=== PATIENT | female | born 1985 | race African-American/Black ===

== ENCOUNTER → 2016-12-29 | Outpatient (CLI) | payer OTHER ==
[~2016-12-29] MED LIST: BUTO1CRE PV; IBUP-232 PO; MACR100C2 PO; OXYC1TAB63 PO; PREN1CAP20 PO; PREN1CAP33 PO; SENN1TAB2 PO
== END ==
LOC: HPND 14:04
PROVIDERS: ATTEND Obstetrics & Gynecology
DX: O09.32 Supervision of pregnancy with insufficient antenatal care, second trimester (principal); O99.842 Bariatric surgery status complicating pregnancy, second trimester; Z68.34 Body mass index [BMI] 34.0-34.9, adult
CPT/HCPCS: 76811

== ENCOUNTER → 2017-01-27 | Outpatient (CLI) | payer OTHER ==
[~2017-01-27] MED LIST changes: +FLUC150T PO
== END ==
LOC: HPND 10:47
PROVIDERS: ATTEND Obstetrics & Gynecology
DX: O99.843 Bariatric surgery status complicating pregnancy, third trimester (principal); Z3A.28 28 weeks gestation of pregnancy
CPT/HCPCS: 76816

== ENCOUNTER 2017-03-31 05:17 | Inpatient (IN) | payer OTHER ==
[~2017-03-31] VITALS: Ht 170.2 cm; Wt 105.2 kg
[2017-03-31] VITALS (32 sets, daily range): BP systolic 104–147; BP diastolic 54–112; PULSE 57–82; RESP 17–20; TEMP 97.5–98.3; O2SAT 94–100
[~2017-03-31 05:17] MED LIST changes: -BUTO1CRE PV; -FLUC150T PO; -IBUP-232 PO; -OXYC1TAB63 PO; -PREN1CAP20 PO; -SENN1TAB2 PO
[2017-03-31] MEDS ORDERED: ONDANSETRON HCL 4 MG/2 ML VIAL IV PRN (06:15)
[2017-03-31] MEDS ORDERED: NS 500 ML BOLUS IV PRN (06:15)
[2017-03-31] MEDS ORDERED: CITRIC ACID-SODIUM CITRATE LIQ 30 ML UDC PO SCH (06:15)
[2017-03-31] MEDS ORDERED: OXYTOCIN 30 UNITS 500ML PREMIX IV ONE (06:15)
[2017-03-31] MEDS ORDERED: MINERAL OIL 10 ML VIAL TOPICAL PRN (06:15)
[2017-03-31] MEDS ORDERED: LIDOCAINE HCL 1% 50 ML VIAL INFIL PRN (06:15)
[2017-03-31] MEDS ORDERED: LACTATED RINGER'S 1000 ML BOLUS IV PRN (06:15)
[2017-03-31] MEDS ORDERED: NS 1000 ML IV PRN (06:15)
[2017-03-31] MEDS ORDERED: LIDOCAINE HCL 1% 50 ML VIAL I-DERMAL PRN (06:15)
[2017-03-31 06:31] LABS: BLOOD, URINE NEG (NEG); COMMENT (UR) CULT NOT INDICATED; CULTURE IF INDICATED CULT NOT INDICATED; GLUCOSE,URINE NEG (NEG); KETONE, URINE NEG (NEG); MUCUS URINE FEW /lpf (OCC); NITRITE,URINE NEG (NEG); PH, URINE 5.5 (5.0-8.5); SQUAMOUS EPITHELIAL CELL URINE <1 /hpf (0-5); URINE COLOR YELLOW (YELLW/STRAW)
[2017-03-31 06:55] LABS: AUTOMATED NEUTROPHIL # 5.4 TH/MM3 (1.8-7.7); BASOPHIL % 0.4 % (0.0-2.0); EOSINOPHIL % 0.5 % (0.0-4.0); HEMATOCRIT 35.8 % (35.0-46.0); HEMO FLAGS DIFF FINAL; LYMPHOCYTE # 3.2 TH/MM3 (1.0-4.8); MEAN CELL VOLUME 90.5 FL (80.0-100.0); MEAN CORPUSCULAR HEMOGLOBIN 30.8 PG (27.0-34.0); MEAN CORPUSCULAR HGB CONC 34.1 % (32.0-36.0); MONO % 6.9 % (0.0-8.0); NEUT % 58.2 % (16.0-70.0); PLATELET COUNT 207 TH/MM3 (150-450); RED BLOOD COUNT 3.95 MIL/MM3 (4.00-5.30); RED CELL DISTRIBUTION WIDTH 13.1 % (11.6-17.2); WHITE BLOOD COUNT 9.3 TH/MM3 (4.0-11.0)
[2017-03-31] MEDS: LACTATED RINGER'S 1000 ML IV SCH (08:29)
--- NOTE | 2017-03-31 09:06 | PD ---
HPI Chief Complaint water broke Date Seen: March 31, 2017 Time Seen: 09:02 (Carmelo Topete MD R1) Travel History International Travel<30 Days: No Contact w/Intl Traveler<30Days: No (Carmelo Topete MD R1) History of Present Illness HPI 31 y/o G1 at 37/5 weeks presents for gush of fluids. Pt states that she had a gush of fluids around 3 am this morning, then proceeded to come to ED. Clear fluid. Denies any vaginal bleeding. Endorses movement. Feeling contractions now every 10 minutes or so. Otherwise, denies any other complaints. No chest pain, SOB, leg pain. No headache, changes in vision, edema. Pt does have history of infections this and has been taking Macrobid. Otherwise, no complications this . Follows with care for women. Para: 0 : 1 (Carmelo Topete MD R1) History Past Medical History Medical History: Denies Significant Hx (Carmelo Topete MD R1) Obstetric History Obstetric History (Carmelo Topete MD R1) Past Surgical History Narrative Surgical Gastric bypass in 2016 (Carmelo Topete MD R1) Family History Family History: Negative (Carmelo Topete MD) Social History Alcohol Use: No Tobacco Use: No Substance Abuse: No (Carmelo Topete MD R1) Allergies-Medications (Allergen,Severity, Reaction): Coded Allergies: No Known Allergies (Unverified , 03/31/17) Home Meds Active Scripts Nitrofurantoin Monohydrate Macrocrystals (Macrobid)100 Mg [id number] Mg PO HS #30 CAP Ref 4 Prov:Nat Parsons 02/17/17 Vit W/ Fe Polysacch C (Vitafol Fe+ 90-1-200 & 50 mg)1 Cap Cap1 Tab PO DAILY #30 BOTTLE Ref 11 Prov:Nat Parsons 12/29/16 Review of Systems General / Constitutional: No: Fever, Chills Eyes: No: Blurred Vision, Visual changes HENT: No: Headaches, Vertigo Cardiovascular: No: Irregular Rhythm, Chest Pain or Discomfort, Palpitations Respiratory: No: Cough, Short of Breath Gastrointestinal: No: Nausea, Vomiting, Diarrhea, Abdominal Pain Genitourinary: No: Urgency, Frequency, Dysuria, Pelvic Pain, Discharge, Vaginal Bleeding Musculoskeletal: No: Limited ROM, Weakness Skin: No Rash, No Itching Neurologic: No: Weakness, Dizziness Psychiatric: No: Anxiety, Depression Endocrine: No: Heat Intolerance (Carmelo Topete MD R1) Physical Exam Vital Signs Date Time Temp Pulse Resp B/P Pulse Ox O2 Delivery O2 Flow Rate FiO2 03/31/17 08:15 18 03/31/17 07:05 98.0 18 03/31/17 07:05 58 123/78 03/31/17 06:48 18 03/31/17 06:30 18 Narrative GENERAL: Well-nourished, well-developed patient. SKIN: Warm and dry. HEAD: Normocephalic and atraumatic. EYES: No scleral icterus. No injection or drainage. ENT: No nasal drainage noted. Mucous membranes pink. Airway patent. NECK: Supple, trachea midline. No JVD. CARDIOVASCULAR: Regular rate and rhythm without murmurs, gallops, or rubs. RESPIRATORY: Breath sounds equal bilaterally. No accessory muscle use. ABDOMEN/GI: Abdomen soft, non-tender, bowel sounds present, no rebound, no guarding Gravid to 37 weeks size GENITOURINARY: External Genitalia: intact and normal in appearance Cervix: [-] Dilatation: [-] Effacement: [-] Station: [-] Presentation: vertex Membranes: ruptured Uterine Contractions: q10 minutes FHT's: Category: 1 Baseline: 130 Reactive: yes Variability: moderate Decels: none EXTREMITIES: No cyanosis or edema. BACK: Nontender without obvious deformity. No CVA tenderness. NEUROLOGICAL: Awake and alert. Motor and sensory grossly within normal limits. Five out of 5 muscle strength in all muscle groups. Normal speech. (Carmelo Topete MD R1) Data Data Orders Ob (2e) Additional Admit Info (03/31/17 05:49) Admit To Inpatient (03/31/17 ) Vital Signs (Adult) .Per protocol (03/31/17 06:03) Activity Oob Ad Ondina (03/31/17 06:03) Heart (03/31/17 06:03) Amnioinfusion (03/31/17 06:03) Urinary Catheter Management .ONCE (03/31/17 06:03) Diet Liquid (03/31/17 Breakfast) Complete Blood Count With Diff (03/31/17 06:03) Hold Clot (03/31/17 06:03) Abo/Rh Blood Type (03/31/17 06:03) Urinalysis - C+S If Indicated (03/31/17 06:03) Resp Oxygen Non Rebreathe Mask (03/31/17 ) ^ Epidural / Intrathecal Infus (03/31/17 06:03) Lactated Ringer's 1000 Ml Inj (Lr 1000 M (03/31/17 06:15) Sodium Chlorid 0.9% 500 Ml Inj (Ns 500 M (03/31/17 06:15) Sodium Chlor 0.9% 1000 Ml Inj (Ns 1000 M (03/31/17 06:15) Lidocaine 1% Inj (50 Ml) (Xylocaine 1% I (03/31/17 06:15) Citric Acid-Sodium Citrate Liq (Bicitra (03/31/17 06:15) Ondansetron Inj (Zofran Inj) (03/31/17 06:15) Fentanyl Inj (Fentanyl Inj) (03/31/17 06:15) Fentanyl Inj (Fentanyl Inj) (03/31/17 06:15) Oxytocin 30 Units-500ml Premix (Pitocin (03/31/17 06:15) Lidocaine 1% Inj (50 Ml) (Xylocaine 1% I (03/31/17 06:15) Light Mineral Oil (Muri-Lube Oil) (03/31/17 06:15) Lactated Ringer's 1000 Ml Inj (Lr 1000 M (03/31/17 06:15) Labs Laboratory Tests Test 03/31/17 03/31/17 05:46 06:21 Urine Color YELLOW Urine Turbidity CLEAR Urine pH 5.5 Urine Specific [place] 1.012 Urine Protein NEG Urine Glucose (UA) NEG Urine Ketones NEG Urine Occult Blood NEG Urine Nitrite NEG Urine Bilirubin NEG Urine Urobilinogen LESS THAN 2.0 Urine Leukocyte Esterase NEG Urine WBC LESS THAN 1 Urine Squamous Epithelial <1 Cells Urine Mucus FEW Microscopic Urinalysis Comment CULT NOT INDICATED White Blood Count 9.3 Red Blood Count 3.95 Hemoglobin 12.2 Hematocrit 35.8 Mean Corpuscular Volume 90.5 Mean Corpuscular Hemoglobin 30.8 Mean Corpuscular Hemoglobin 34.1 Concent Red Cell Distribution Width 13.1 Platelet Count 207 Mean Platelet Volume 9.9 Neutrophils (%) (Auto) 58.2 Lymphocytes (%) (Auto) 34.0 Monocytes (%) (Auto) 6.9 Eosinophils (%) (Auto) 0.5 Basophils (%) (Auto) 0.4 Neutrophils # (Auto) 5.4 Lymphocytes # (Auto) 3.2 Monocytes # (Auto) 0.6 Eosinophils # (Auto) 0.0 Basophils # (Auto) 0.0 CBC Comment DIFF FINAL Differential Comment Blood Type A POSITIVE Blood Bank Comment Band and Hold (Carmelo Topete MD R1) [facility] Medical Record Reviewed: Yes Interpretation(s) 31 y/o at 37/5 weeks presents for SROM. Clear fluid, rupture around 0300 this morning Category 1 FHT Cervical exam: 0/-2 - Admit for labor & delivery - GBS status pending, collected at last clinic visit, awaiting results - Continuous FHT - Expectant management - Plan for vaginal delivery (Carmelo Topete MD R1) Attending Attestation The exam, history, and the medical decision-making described in the above note were completed with the assistance of the resident provider. I reviewed and agree with the findings presented. I attest that I had a [id number] encounter with the patient on the same day, and personally performed and documented my assessment and findings in the medical record. (Lenka Enriquez MD) Carmelo Topete MD R1 March 31, 2017 09:06 Lenka Enriquez MD March 31, 2017 10:22
--- NOTE | 2017-03-31 09:23 | HHI.HP ---
History & Physical H&P HPI HPI Chief Complaint water broke Date Seen: March 31, 2017 Time Seen: 09:02 Travel History International Travel<30 Days: No Contact w/Intl Traveler<30Days: No History of Present Illness HPI 31 y/o G1 at 37/5 weeks presents for gush of fluids. Pt states that she had a gush of fluids around 3 am this morning, then proceeded to come to ED. Clear fluid. Denies any vaginal bleeding. Endorses movement. Feeling contractions now every 10 minutes or so. Otherwise, denies any other complaints. No chest pain, SOB, leg pain. No headache, changes in vision, edema. Pt does have history of infections this and has been taking Macrobid. Otherwise, no complications this . Follows with care for women. Para: 0 : 1 History (Limited) History Past Medical History Medical History: Denies Significant Hx Obstetric History Obstetric History Past Surgical History Narrative Surgical Gastric bypass in 2016 Family History Family History: Negative Social History Alcohol Use: No Tobacco Use: No Substance Abuse: No Allergies-Medications Allergies-Medications (Allergen,Severity, Reaction): Coded Allergies: No Known Allergies (Unverified , 03/31/17) Home Meds Active Scripts Nitrofurantoin Monohydrate Macrocrystals (Macrobid)100 Mg [id number] Mg PO HS #30 CAP Ref 4 Prov:Nat Parsons 02/17/17 Vit W/ Fe Polysacch C (Vitafol Fe+ 90-1-200 & 50 mg)1 Cap Cap1 Tab PO DAILY #30 BOTTLE Ref 11 Prov:Nat Parsons 12/29/16 ROS Review of Systems General / Constitutional: No: Fever, Chills Eyes: No: Blurred Vision, Visual changes HENT: No: Headaches, Vertigo Cardiovascular: No: Irregular Rhythm, Chest Pain or Discomfort, Palpitations Respiratory: No: Cough, Short of Breath Gastrointestinal: No: Nausea, Vomiting, Diarrhea, Abdominal Pain Genitourinary: No: Urgency, Frequency, Dysuria, Pelvic Pain, Discharge, Vaginal Bleeding Musculoskeletal: No: Limited ROM, Weakness Skin: No Rash, No Itching Neurologic: No: Weakness, Dizziness Psychiatric: No: Anxiety, Depression Endocrine: No: Heat Intolerance Physical Exam Physical Exam Vital Signs Date Time Temp Pulse Resp B/P Pulse Ox O2 Delivery O2 Flow Rate FiO2 03/31/17 08:15 18 03/31/17 07:05 98.0 18 03/31/17 07:05 58 123/78 03/31/17 06:48 18 03/31/17 06:30 18 Narrative GENERAL: Well-nourished, well-developed patient. SKIN: Warm and dry. HEAD: Normocephalic and atraumatic. EYES: No scleral icterus. No injection or drainage. ENT: No nasal drainage noted. Mucous membranes pink. Airway patent. NECK: Supple, trachea midline. No JVD. CARDIOVASCULAR: Regular rate and rhythm without murmurs, gallops, or rubs. RESPIRATORY: Breath sounds equal bilaterally. No accessory muscle use. ABDOMEN/GI: Abdomen soft, non-tender, bowel sounds present, no rebound, no guarding Gravid to 37 weeks size GENITOURINARY: External Genitalia: intact and normal in appearance Cervix: [-] Dilatation: [-] Effacement: [-] Station: [-] Presentation: vertex Membranes: ruptured Uterine Contractions: q10 minutes FHT's: Category: 1 Baseline: 130 Reactive: yes Variability: moderate Decels: none EXTREMITIES: No cyanosis or edema. BACK: Nontender without obvious deformity. No CVA tenderness. NEUROLOGICAL: Awake and alert. Motor and sensory grossly within normal limits. Five out of 5 muscle strength in all muscle groups. Normal speech. Data Data Data Orders Ob (2e) Additional Admit Info (03/31/17 05:49) Admit To Inpatient (03/31/17 ) Vital Signs (Adult) .Per protocol (03/31/17 06:03) Activity Oob Ad Ondina (03/31/17 06:03) Heart (03/31/17 06:03) Amnioinfusion (03/31/17 06:03) Urinary Catheter Management .ONCE (03/31/17 06:03) Diet Liquid (03/31/17 Breakfast) Complete Blood Count With Diff (03/31/17 06:03) Hold Clot (03/31/17 06:03) Abo/Rh Blood Type (03/31/17 06:03) Urinalysis - C+S If Indicated (03/31/17 06:03) Resp Oxygen Non Rebreathe Mask (03/31/17 ) ^ Epidural / Intrathecal Infus (03/31/17 06:03) Lactated Ringer's 1000 Ml Inj (Lr 1000 M (03/31/17 06:15) Sodium Chlorid 0.9% 500 Ml Inj (Ns 500 M (03/31/17 06:15) Sodium Chlor 0.9% 1000 Ml Inj (Ns 1000 M (03/31/17 06:15) Lidocaine 1% Inj (50 Ml) (Xylocaine 1% I (03/31/17 06:15) Citric Acid-Sodium Citrate Liq (Bicitra (03/31/17 06:15) Ondansetron Inj (Zofran Inj) (03/31/17 06:15) Fentanyl Inj (Fentanyl Inj) (03/31/17 06:15) Fentanyl Inj (Fentanyl Inj) (03/31/17 06:15) Oxytocin 30 Units-500ml Premix (Pitocin (03/31/17 06:15) Lidocaine 1% Inj (50 Ml) (Xylocaine 1% I (03/31/17 06:15) Light Mineral Oil (Muri-Lube Oil) (03/31/17 06:15) Lactated Ringer's 1000 Ml Inj (Lr 1000 M (03/31/17 06:15) Labs Laboratory Tests Test 03/31/17 03/31/17 05:46 06:21 Urine Color YELLOW Urine Turbidity CLEAR Urine pH 5.5 Urine Specific [place] 1.012 Urine Protein NEG Urine Glucose (UA) NEG Urine Ketones NEG Urine Occult Blood NEG Urine Nitrite NEG Urine Bilirubin NEG Urine Urobilinogen LESS THAN 2.0 Urine Leukocyte Esterase NEG Urine WBC LESS THAN 1 Urine Squamous Epithelial <1 Cells Urine Mucus FEW Microscopic Urinalysis Comment CULT NOT INDICATED White Blood Count 9.3 Red Blood Count 3.95 Hemoglobin 12.2 Hematocrit 35.8 Mean Corpuscular Volume 90.5 Mean Corpuscular Hemoglobin 30.8 Mean Corpuscular Hemoglobin 34.1 Concent Red Cell Distribution Width 13.1 Platelet Count 207 Mean Platelet Volume 9.9 Neutrophils (%) (Auto) 58.2 Lymphocytes (%) (Auto) 34.0 Monocytes (%) (Auto) 6.9 Eosinophils (%) (Auto) 0.5 Basophils (%) (Auto) 0.4 Neutrophils # (Auto) 5.4 Lymphocytes # (Auto) 3.2 Monocytes # (Auto) 0.6 Eosinophils # (Auto) 0.0 Basophils # (Auto) 0.0 CBC Comment DIFF FINAL Differential Comment Blood Type A POSITIVE Blood Bank Comment Band and Hold MDM [facility] Medical Record Reviewed: Yes Interpretation(s) 31 y/o at 37/5 weeks presents for SROM. Clear fluid, rupture around 0300 this morning Category 1 FHT Cervical exam: 0/70/-2 - Admit for labor & delivery - GBS status pending, collected at last clinic visit, awaiting results - Continuous FHT - Expectant management - Plan for vaginal delivery (Carmelo Topete MD R1) H&P The exam, history, and the medical decision-making described in the above note were completed with the assistance of the resident provider. I reviewed and agree with the findings presented. I attest that I had a [id number] encounter with the patient on the same day, and personally performed and documented my assessment and findings in the medical record. Will place cytotec for induction of labor secondary to PROM at term. (Lenka Enriquez MD) Carmelo Topete MD R1 March 31, 2017 09:23 Lenka Enriquez MD March 31, 2017 10:23
[2017-03-31] MEDS ORDERED: OXYTOCIN 30 UNITS-500ML PREMIX 500 ML IV SCH (12:30)
--- NOTE | 2017-03-31 16:23 | PD.LABORPN ---
Subjective Subjective Patient starting to feel her contractions Objective Vital Signs Vital Signs Date Time Temp Pulse Resp B/P Pulse Ox O2 Delivery O2 Flow Rate FiO2 03/31/17 16:00 18 03/31/17 15:30 63 125/92 03/31/17 15:00 57 118/73 03/31/17 15:00 19 03/31/17 14:30 104/69 03/31/17 14:30 81 03/31/17 14:09 97.7 03/31/17 14:00 97.7 66 18 124/84 03/31/17 13:30 78 113/78 03/31/17 13:15 18 03/31/17 13:01 71 123/73 03/31/17 13:00 71 123/73 03/31/17 12:40 69 131/83 03/31/17 12:15 18 03/31/17 11:15 17 03/31/17 11:15 98.0 03/31/17 10:15 18 03/31/17 10:15 75 116/71 03/31/17 09:15 98.3 03/31/17 09:15 17 Objective Pelvic Exam: Cervix: [-] Midline Dilatation: [-] 1 -2 Effacement: [-] 80% effaced Station: [-] -1 station Presentation: [-] Vertex Membranes: [ ruptured] Uterine Contractions: [-] IUPC placed to better evaluate the contraction pattern FHT's: Category: [-] 1 Baseline: [-] 130 Reactive: [-] + Variability: [-] Moderate Decels: [-] Interruption of the tracing where the IUPC was placed no decelerations Assessment/Plan Assessment and Plan Premature rupture of membranes Plan Hold Pitocin at 8 milliunits until contraction pattern Is established with IUPC Monse Melchor MD March 31, 2017 16:23
--- NOTE | 2017-03-31 16:38 | PD.LABORPN ---
Objective Vital Signs Patient now having variable decelerations with contractions the Pitocin is admitted 8 milliunits Will DC the Pitocin positional change Will begin and amnioinfusion IV fluid hydration Moderate [id number] variability Reevaluation Vital Signs Date Time Temp Pulse Resp B/P Pulse Ox O2 Delivery O2 Flow Rate FiO2 03/31/17 16:00 18 03/31/17 15:30 63 125/92 03/31/17 15:00 57 118/73 03/31/17 15:00 19 03/31/17 14:30 104/69 03/31/17 14:30 81 03/31/17 14:09 97.7 03/31/17 14:00 97.7 66 18 124/84 03/31/17 13:30 78 113/78 03/31/17 13:15 18 03/31/17 13:01 71 123/73 03/31/17 13:00 71 123/73 03/31/17 12:40 69 131/83 03/31/17 12:15 18 03/31/17 11:15 17 03/31/17 11:15 98.0 03/31/17 10:15 18 03/31/17 10:15 75 116/71 03/31/17 09:15 98.3 03/31/17 09:15 17 Objective Pelvic Exam: Cervix: [-] Dilatation: [-] Effacement: [-] Station: [-] Presentation: [-] Membranes: [intact or ruptured] Uterine Contractions: [-] FHT's: Category: [-] Baseline: [-] Reactive: [-] Variability: [-] Decels: [-] Monse Melchor MD March 31, 2017 16:38
[2017-03-31] MEDS: ceFAZolin INJ 1,000 MG VIAL ONE ×2 (16:53→16:56)
[2017-03-31] MEDS ORDERED: OXYTOCIN 10 UNIT/ML AMP ONE (16:57)
[2017-03-31 17:16] LABS: BLOOD GAS BASE EXCESS -0.9 mmol/L (-2-2); BLOOD GAS O2 HGB SATURATION 32 % (90-100); CORD BLOOD GAS HCO3 26 mmol/L (21-29); CORD BLOOD GAS PCO2 62 mmHG (34-78); CORD BLOOD GAS PH 7.24 (7.14-7.42); CORD BLOOD GAS PO2 20 mmHG (3.0-40.0); DRAW SITE CORD BLOOD; STAT NO
[2017-03-31] MEDS ORDERED: fentaNYL CITRATE 250 MCG/5 ML AMP ONE (17:41)
[2017-03-31] MEDS ORDERED: ONDANSETRON HCL 4 MG/2 ML VIAL ONE (17:41)
[2017-03-31] MEDS ORDERED: OXYTOCIN 30 UNITS-500ML PREMIX 500 ML IV ONE (17:45)
[2017-03-31] MEDS ORDERED: ACETAMINOPHEN 1000 MG/100 ML VIAL IV ONE ×2 (17:45→17:50)
[2017-03-31] MEDS ORDERED: SIMETHICONE 80 MG CHEWABLE TAB PO PRN (17:45)
[2017-03-31] MEDS ORDERED: KETOROLAC TROMETHAMINE 60 MG/2 ML (IM) VIAL IM PRN (17:45)
[2017-03-31] MEDS ORDERED: SODIUM CHLORIDE 0.9% FLUSH 10 ML FLUSH IV FLUSH PRN (17:45)
--- NOTE | 2017-03-31 17:49 | PD.OP ---
Operative Report Date of Surgery: March 31, 2017 Preoperative Diagnosis: Intrauterine at 37 weeks Premature rupture of membranes intolerance to labor Postoperative Diagnosis: Same SGA Body cord Procedure: Primary low segment transverse section Anesthesia: Gen. Surgeon: Monse Mclain Tree Climber(s): OR staff Resident Surgeon: None Operation and Findings: Anesthesiologist:: (Dr. Forrest ) Estimated blood loss: (600 cc ) Sponge and instrument count: (Correct ) Drains: (None ) Complications: (None ) Indications for procedure: ( intolerance to labor with persistent bradycardia patient only dilated 1 cm ) Findings: ( Viable female infant weight 20/1/40 grams Apgars of 8 at 1 minute 9 at 5 minutes body cord moderately tight 1 cord pH 7.24) Timeout done The patient was taken to the operating room where she was placed in the supine position compression hoses were placed Brown catheter was placed under sterile conditions and draining clear urine. Bovie pad was placed and functioning abdomen was shaved and Betadine placed blue drape was placed Gen. anesthesia was then achieved A transverse Pfannenstiel incision was made carried down through the skin subcutaneous tissue. The fascia was opened transversely. from the muscles in the midline. The rectus muscles were . Peritoneal cavity opened and the abdominal cavity entered. The bladder flap was taken down transversely and a low segment transverse incision made into the lower uterine segment. The fluid was (scant but appeared to be clear ). The was vertex. The vertex was delivered nose and mouth suctioned well the remainder of the body was then delivered. Cord was around the body moderately tight this was reduced Cord doubly clamped and cut and the infant handed over to the awaiting nursing staff. Segment of cord was obtained for cord pH which was 7.24 The placenta spontaneously delivered intact with fundal massage. The uterus was then exteriorized cleaned of excessive blood and debris. The incision was then closed with 0 chromic in a continuous interlocking stitch. The stitch line was imbricated also using 0 chromic. No active bleeding. Tubes and ovaries were inspected and found to be normal. The abdominal cavity was then irrigated. The uterus placed back into the abdomen. Paracolic gutters cleaned of excessive blood and debris. Interceed was then placed over the incision and the anterior surface of the uterus in an inverted T. muscle and peritoneum closed is 1 The fascia was then closed with 0 Vicryl in a continuous stitch. Inspection of the muscle bed demonstrated no bleeding. . The subcutaneous tissue was irrigated bleeders controlled with Bovie. Bhargav's fascia closed with 2-0 Vicryl. The skin was closed using ( subcuticular stitch with 3-0 Monocryl). The uterus was massaged clearing blood and clots. The patient was cleaned. Pressure dressing and abdominal binder placed. Patient then transferred to the recovery room in stable condition, where her vital signs are (stable ). Urine is clear and adequate. Baby transferred to the nursery in stable condition. Monse Melchor MD March 31, 2017 17:49
[2017-03-31] MEDS ORDERED: HYDROmorphone HCL PCA 6 MG/30 ML IV ONE (17:54)
--- NOTE | 2017-03-31 18:20 | RADRPT ---
EXAM DATE/TIME: 03/31/2017 17:23 [place] COMPARISON: No previous studies available for comparison. INDICATIONS : Instrument count. MEDICAL HISTORY : None. SURGICAL HISTORY : None. ENCOUNTER: Initial ACUITY: 1 day PAIN SCORE: Non-responsive. LOCATION: Bilateral lower quadrant FINDINGS: Examination of the abdomen demonstrates a normal bowel gas pattern. No free air is identified. No o rganomegaly is evident. Osseous structures are intact. CONCLUSION: Normal examination. Abdulaziz Garcia MD on March 31, 2017 at 17:59 Board Certified Radiologist. This report was verified electronically.
[2017-03-31] MEDS ORDERED: NALOXONE HCL 0.4 MG/ML AMP IV PRN (18:30)
[2017-03-31] MEDS: HYDROmorphone HCL PCA 6 MG/30 ML IV SCH (18:36)
[2017-03-31] MEDS ORDERED: OXYTOCIN 30 UNITS-500ML PREMIX 500 ML ONE (18:37)
[2017-03-31] MEDS ORDERED: HYDROmorphone HCL PF 2 MG/ML VIAL ONE (18:57)
[2017-03-31] MEDS: LACTATED RINGER'S 1000 ML INJ 1,000 ML IV SCH (20:40)
[2017-03-31] MEDS: SODIUM CHLORIDE 0.9% FLUSH 10 ML FLUSH IV FLUSH SCH (21:00)
[2017-03-31] MEDS: PCA - TOTAL MG DILAUDID DELIVERED PER SHIFT SCH (23:30)
[2017-04-01] MEDS ORDERED: OXYTOCIN 30 UNITS-500ML PREMIX 500 ML IV PRN (03:45)
[2017-04-01] MEDS: PCA - TOTAL MG DILAUDID DELIVERED PER SHIFT SCH (06:00)
[2017-04-01] MEDS: HYDROmorphone HCL PCA 6 MG/30 ML IV SCH (06:01)
[2017-04-01 06:54] LABS: AUTOMATED NEUTROPHIL # 8.4 TH/MM3 (1.8-7.7); BASOPHIL % 0.2 % (0.0-2.0); EOSINOPHIL % 0.1 % (0.0-4.0); HEMATOCRIT 32.9 % (35.0-46.0); HEMO FLAGS DIFF FINAL; LYMPH % 16.7 % (9.0-44.0); LYMPHOCYTE # 1.8 TH/MM3 (1.0-4.8); MEAN CELL VOLUME 91.2 FL (80.0-100.0); MEAN CORPUSCULAR HEMOGLOBIN 30.9 PG (27.0-34.0); MEAN CORPUSCULAR HGB CONC 33.8 % (32.0-36.0); PLATELET COUNT 174 TH/MM3 (150-450); RED CELL DISTRIBUTION WIDTH 12.9 % (11.6-17.2); WHITE BLOOD COUNT 10.7 TH/MM3 (4.0-11.0)
[2017-04-01 07:35] VITALS: BP 104/64; PULSE 60; RESP 18; TEMP 98
--- NOTE | 2017-04-01 08:22 | HHI.OB ---
Subjective Post Operative Day: 1 Remarks Postoperative day number 1. AFVSS overnight. Pain controlled. 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 Incision not draining. Decreased lochia. Denies dysuria. No breast tenderness. Appetite good. No nausea or vomiting. Endorses flatus. No bowel movement. Ambulating well. Denies calf pain, shortness of breath, or cough. Otherwise, she is doing well this morning and has no other complaints. Objective Vitals/I&O Vital Signs Date Time Temp Pulse Resp B/P Pulse Ox O2 Delivery O2 Flow Rate FiO2 04/01/17 07:35 98.0 04/01/17 07:35 60 18 104/64 04/01/17 06:01 18 04/01/17 06:00 18 03/31/17 23:30 18 03/31/17 19:00 98.0 03/31/17 19:00 67 18 111/67 99 03/31/17 18:45 79 19 99 03/31/17 18:45 122/68 03/31/17 18:30 68 20 112/64 99 03/31/17 18:15 19 98 03/31/17 18:15 73 135/65 03/31/17 18:00 82 18 115/54 98 03/31/17 17:39 123/57 03/31/17 17:39 97.5 80 18 94 03/31/17 16:40 61 100 03/31/17 16:35 64 100 03/31/17 16:31 66 129/88 03/31/17 16:30 100 03/31/17 16:30 68 03/31/17 16:29 68 136/84 03/31/17 16:27 73 147/112 03/31/17 16:25 59 100 03/31/17 16:00 18 03/31/17 15:30 63 125/92 03/31/17 15:00 57 118/73 03/31/17 15:00 19 03/31/17 14:30 104/69 03/31/17 14:30 81 03/31/17 14:09 97.7 03/31/17 14:00 97.7 66 18 124/84 03/31/17 13:30 78 113/78 03/31/17 13:15 18 03/31/17 13:01 71 123/73 03/31/17 13:00 71 123/73 03/31/17 12:40 69 131/83 03/31/17 12:15 18 03/31/17 11:15 17 03/31/17 11:15 98.0 03/31/17 10:15 18 03/31/17 10:15 75 116/71 03/31/17 09:15 98.3 03/31/17 09:15 17 Result Diagram: 04/01/17 0603 Objective Remarks GENERAL: Well-nourished, well-developed patient. CARDIOVASCULAR: Regular rate and rhythm without murmurs, gallops, or rubs. RESPIRATORY: Breath sounds equal bilaterally. No accessory muscle use. ABDOMEN/GI: Abdomen soft, non-tender, bowel sounds present. Incision: Clean, dry and intact. Fundus: Firm, non-tender at umbilicus. GENITOURINARY: Light to moderate bleeding. EXTREMITIES: No cyanosis or edema, non-tender, without signs of DVT. Medications and IVs Current Medications Medications (Trade) Dose Ordered Sig/Kellie Route Start Time Stop Time Status Last Admin Lactated Ringer's 1,000 ml @ 3,000 mls/hr BOLUS PRN IV 03/31/17 06:15 Sodium Chloride 500 ml @ 1,000 mls/hr BOLUS PRN IV 03/31/17 06:15 (NS 1000 ml Inj) 1,000 ml @ 100 mls/hr Q10H PRN IV 03/31/17 06:15 (Zofran Inj) 4 mg Q6H PRN IV 03/31/17 06:15 (fentaNYL INJ) 50 mcg Q1H PRN IV PUSH 03/31/17 06:15 (fentaNYL INJ) 100 mcg Q1H PRN IV PUSH 03/31/17 06:15 Mineral Oil 10 ml 10 ml UNSCH PRN TOPICAL 03/31/17 06:15 Oxytocin 500 ml @ 0 mls/hr TITRATE IV 03/31/17 12:30 03/31/17 12:36 (Lr 1000 ml Inj) 1,000 ml @ 100 mls/hr Q10H IV 03/31/17 22:34 04/01/17 18:33 03/31/17 20:40 (NS Flush) 2 ml BID IV FLUSH 03/31/17 21:00 (NS Flush) 2 ml UNSCH PRN IV FLUSH 03/31/17 17:45 (Mylicon Chew) 80 mg QID PRN PO 03/31/17 17:45 (Motrin) 600 mg Q6H PRN PO 03/31/17 17:45 (Toradol Inj) 30 mg Q6H PRN IM 03/31/17 17:45 04/01/17 17:44 Oxycodone/ Acetaminophen 1 tab 1 tab Q4H PRN PO 03/31/17 17:45 (Ancef Inj/NS Inj) 100 ml @ 200 mls/hr Q8H IV 04/01/17 01:00 04/01/17 09:29 04/01/17 01:04 (M-M-R Ii Inj) 0.5 ml ONCE ONCE SQ 04/01/17 16:00 04/01/17 16:01 (Boostrix Inj) 0.5 ml ONCE ONCE IM 04/01/17 16:00 04/01/17 16:01 (Dilaudid [employer] K[employer]PER HELPER Inj) 6 mg UNSCH IV 03/31/17 18:30 04/01/17 06:01 BLAST F[employer] K[employer]PER HELPER Dosage Infused (Pha) 1 Q8HR .XX 03/31/17 22:00 04/01/17 06:00 (Narcan Inj) 0.4 mg UNSCH PRN IV 03/31/17 18:30 Assessment/Plan Assessment and Plan 31y/o female who is POD#1 s/p CXN. -Continue routine care. -D/c BLAST FURNACE KEEPER HELPER pump; Percocet and Motrin PRN pain. -Encouraged OOB. Advised pelvic rest for 6 wks. Will need a f/u appt. in 1 wk for incision check. -D/c in 1-[address] Chemo Topete,Carmelo Yost MD R1 April 01, 2017 08:22
[2017-04-01] MEDS ORDERED: oxyCODONE/ACETAMINOPHEN 5 MG/325 MG TAB PO PRN (08:30)
[2017-04-01] MEDS: LACTATED RINGER'S 1000 ML INJ 1,000 ML IV SCH (08:34)
[2017-04-01] MEDS: SODIUM CHLORIDE 0.9% FLUSH 10 ML FLUSH IV FLUSH SCH ×3 (09:00→21:00)
[2017-04-01] MEDS: oxyCODONE/ACETAMINOPHEN 5 MG/325 MG TAB PO PRN ×3 (09:34→21:27)
[2017-04-01] MEDS: IBUPROFEN 600 MG TAB PO PRN ×3 (09:34→21:27)
[2017-04-01] MEDS ORDERED: MEASLES, MUMPS, RUBELLA VACCINE 0.5 ML VIAL SQ ONE (16:00)
[2017-04-01] MEDS ORDERED: DIPHTH/TETANUS/ACEL PERTUSSIS (BOOSTER) 0.5 ML VIAL/PFS IM ONE (16:00)
[2017-04-01 16:37] VITALS: BP 114/76; PULSE 72; RESP 16; TEMP 98.3
[2017-04-01 17:32] LABS: BLOOD, URINE NEG (NEG); COMMENT (UR) CATH-CULT NOT IND; CULTURE IF INDICATED CATH CULTURE NOT IND; GLUCOSE,URINE NEG (NEG); KETONE, URINE NEG (NEG); MUCUS URINE FEW /lpf (OCC); NITRITE,URINE NEG (NEG); URINE COLOR LIGHT-YELLOW (YELLW/STRAW)
[2017-04-01 19:58] VITALS: BP 114/65; PULSE 89; RESP 18; TEMP 98.1; O2SAT 99
[2017-04-02] MEDS: oxyCODONE/ACETAMINOPHEN 5 MG/325 MG TAB PO PRN ×3 (01:35→11:00)
[2017-04-02] MEDS: IBUPROFEN 600 MG TAB PO PRN ×2 (03:59→11:00)
[2017-04-02 08:00] VITALS: BP 102/63; PULSE 84; RESP 18; TEMP 98.2; O2SAT 97
--- NOTE | 2017-04-02 08:23 | HHI.OB ---
Subjective Post Operative Day: 2 Remarks Postoperative day number 2. AFVSS overnight. Pain controlled with medications. Incision not draining. Decreased lochia. Complaining of some dysuria. UA repeated yesterday, was negative. No breast tenderness. Appetite good. No nausea or vomiting. Endorses flatus. No bowel movement. Ambulating well. Denies calf pain, shortness of breath, or cough. Otherwise, she is doing well this morning and has no other complaints. Objective Vitals/I&O Vital Signs Date Time Temp Pulse Resp B/P Pulse Ox O2 Delivery O2 Flow Rate FiO2 04/01/17 19:58 98.1 89 18 114/65 99 04/01/17 16:37 98.3 72 16 114/76 Result Diagram: 04/01/17 0603 Objective Remarks GENERAL: Well-nourished, well-developed patient. CARDIOVASCULAR: Regular rate and rhythm without murmurs, gallops, or rubs. RESPIRATORY: Breath sounds equal bilaterally. No accessory muscle use. ABDOMEN/GI: Abdomen soft, non-tender, bowel sounds present. Incision: Clean, dry and intact. Fundus: Firm, non-tender at umbilicus. GENITOURINARY: Light bleeding. EXTREMITIES: No cyanosis or edema, non-tender, without signs of DVT. Medications and IVs Current Medications Medications (Trade) Dose Ordered Sig/Kellie Route Start Time Stop Time Status Last Admin Lactated Ringer's 1,000 ml @ 3,000 mls/hr BOLUS PRN IV 03/31/17 06:15 Sodium Chloride 500 ml @ 1,000 mls/hr BOLUS PRN IV 03/31/17 06:15 (NS 1000 ml Inj) 1,000 ml @ 100 mls/hr Q10H PRN IV 03/31/17 06:15 (Zofran Inj) 4 mg Q6H PRN IV 03/31/17 06:15 (fentaNYL INJ) 50 mcg Q1H PRN IV PUSH 03/31/17 06:15 (fentaNYL INJ) 100 mcg Q1H PRN IV PUSH 03/31/17 06:15 Mineral Oil 10 ml 10 ml UNSCH PRN TOPICAL 03/31/17 06:15 (Pitocin 30 Units-NS 500 ml Premix) 500 ml @ 0 mls/hr TITRATE IV 03/31/17 12:30 03/31/17 12:36 (NS Flush) 2 ml BID IV FLUSH 03/31/17 21:00 (NS Flush) 2 ml UNSCH PRN IV FLUSH 03/31/17 17:45 (Mylicon Chew) 80 mg QID PRN PO 03/31/17 17:45 (Motrin) 600 mg Q6H PRN PO 03/31/17 17:45 04/02/17 03:59 (Percocet 5-325 Mg) 1 tab Q4H PRN PO 03/31/17 17:45 04/02/17 03:59 (Percocet 5-325 Mg) 2 tab Q4H PRN PO 04/01/17 08:30 Assessment/Plan Assessment and Plan 31y/o female who is POD#2 s/p CXN. -Continue routine care. -Percocet and Motrin PRN pain. -Encouraged OOB. Advised pelvic rest for 6 wks. Will need a f/u appt. in 1 wk for incision check. -D/c today/tomorrow Carmelo Topete MD R1 April 02, 2017 08:23
[2017-04-02] MEDS ORDERED: SENN1TAB2 PO (08:58)
[2017-04-02] MEDS ORDERED: IBUP-232 PO (08:58)
--- NOTE | 2017-04-02 08:59 | HHI.DCPOC ---
Discharge Care Plan Diagnosis: (1) care following delivery Report Symptoms to Your Doctor -Temperate above 100.5 degrees -Redness, of incision or excessive or foul smelling drainage -Unusual pain or calf pain -Increased vaginal bleeding -Painful or difficulty urinating -Feelings of extreme sadness or anxiety after 2 weeks Goals to Promote Your Health * To prevent worsening of your condition and complications * To maintain your health at the optimal level Directions to Meet Your Goals Take your medications as prescribed Follow your dietary instruction Follow activity as directed Ensure plenty of rest for recovery Drink fluids for hydration Keep your appointments as scheduled Take your immunizations and boosters as scheduled If your symptoms worsen call your PCP, if no PCP go to Urgent Care Center or Emergency Room Smoking is Dangerous to Your Health. Avoid second hand smoke Call the 24-hour crisis hotline for domestic abuse at Carmelo Topete MD R1 April 02, 2017 08:59
[2017-04-02 09:00] VITALS: BP 102/65; PULSE 84; RESP 18; RESP 9; TEMP 98.2
[2017-04-02] MEDS ORDERED: OXYC1TAB63 PO (09:00)
[2017-05-14] MEDS ORDERED: BUTO1CRE PV (11:28)
[2017-05-21] MEDS ORDERED: FLUC150T PO (11:45)
== END 2017-04-02 13:28 | disposition home or self-care (01) | DRG 766 ==
LOC: HOBED 05:17 → H2EB 05:50 → H1EA 19:25
PROVIDERS: ADMIT Obstetrics & Gynecology; ATTEND Obstetrics & Gynecology
PROC: 10D00Z1 Extraction of Products of Conception, Low, Open Approach (ICD-10-PCS; principal; 2017-03-31)
PROC: 10H07YZ Insertion of Other Device into Products of Conception, Via Natural or Artificial Opening (ICD-10-PCS; 2017-03-31)
PROC: 3E0E7GC Introduction of Other Therapeutic Substance into Products of Conception, Via Natural or Artificial Opening (ICD-10-PCS; 2017-03-31)
DX: O42.92 Full-term premature rupture of membranes, unspecified as to length of time between rupture and onset of labor (principal); O76 Abnormality in fetal heart rate and rhythm complicating labor and delivery; O77.9 Labor and delivery complicated by fetal stress, unspecified; O69.82X0 Labor and delivery complicated by other cord entanglement, without compression, not applicable or unspecified; O99.844 Bariatric surgery status complicating childbirth; Z37.0 Single live birth; Z3A.37 37 weeks gestation of pregnancy
CPT/HCPCS: 59025; 74000; 81001; 82805; 85025; 86900; 86901; 87081; 88307; 99285; C1765; J0131; J0690; J1170; J2405; J2590; J3010; J7120